=== PATIENT | female | born 1995 | race Caucasian/White ===

== ENCOUNTER 2020-10-11 15:58 | Emergency (ER) | payer BC, OTHER ==
[~2020-10-11 15:58] MED LIST: AEROCHAMBER1 EA XX; IBUPROFEN600 MG PO; PREDNISONE20 MG PO; TESSALON PERLE100 MG PO; VENTOLIN HFA 66.7 GM INH
[2020-10-11] MEDS ORDERED: IBUPROFEN600 MG PO (16:56)
[2020-10-11] MEDS ORDERED: AMOXICILLIN500 MG PO (16:56)
== END 2020-10-11 17:09 | disposition home or self-care (01) ==
LOC: ER1 15:58
DX: R68.84 Jaw pain (principal); K08.89 Other specified disorders of teeth and supporting structures; F17.290 Nicotine dependence, other tobacco product, uncomplicated
CPT/HCPCS: 99283

== ENCOUNTER 2020-12-29 16:21 | Emergency (ER) | payer BC, OTHER ==
[~2020-12-29 16:21] MED LIST changes: +AMOXICILLIN500 MG PO
== END 2020-12-29 17:04 | disposition left against medical advice (07) ==
LOC: ER1 16:21
DX: Z53.21 Procedure and treatment not carried out due to patient leaving prior to being seen by health care provider (principal)